=== PATIENT | male | born 2000 | race Caucasian/White ===

== ENCOUNTER 2020-06-21 13:55 | Inpatient (IN) | payer BC, OTHER ==
[~2020-06-21] VITALS: Ht 180.3 cm; Wt 76.0 kg
[2020-06-21] MEDS ORDERED: ONDANSETRON 2MG/ML, 2ML ONE (14:23)
[2020-06-21] MEDS ORDERED: MORPHINE SULFATE 4 MG/ML, 1ML ONE (14:23)
[2020-06-21] MEDS ORDERED: MORPHINE SULFATE 4 MG/ML, 1ML IVPush PRN (14:30)
[2020-06-21] MEDS ORDERED: SODIUM CHLORIDE FLUSH 10ML SYR IVF ONE (14:30)
[2020-06-21] MEDS ORDERED: ONDANSETRON 2MG/ML, 2ML IVPush ONE (14:30)
--- NOTE | 2020-06-21 15:28 | NUR ---
Break RN note: Dr. Owusu at bedside to evaluate pt.
[2020-06-21] MEDS ORDERED: ACETAMINOPHEN 325 MG TABLET PO PRN (16:00)
[2020-06-21] MEDS ORDERED: DIPHENHYDRAMINE 25 MG CAPSULE PO PRN (16:00)
[2020-06-21] MEDS ORDERED: ONDANSETRON 2MG/ML, 2ML IV PRN (16:00)
--- NOTE | 2020-06-21 16:09 | NUR ---
Break RN note: Reported events to Erasmo GLYNN who is reassuming care at this time.
[2020-06-21 16:41] VITALS: BP 155/88
[2020-06-21] MEDS: HYDROcodone/APAP 5/325 TABLET PO PRN ×2 (17:00→21:45)
[2020-06-21 19:30] VITALS: BP 119/64
[2020-06-21] MEDS: OXYcodone 5 MG/5 ML ORAL.SOL UDC PO PRN (20:14)
[2020-06-22 02:35] VITALS: BP 120/73
[2020-06-22] MEDS: morphine SULFATE 10 MG/ML, 1ML IV PRN ×2 (03:22→08:05)
[2020-06-22 07:00] VITALS: BP 125/75
[2020-06-22] MEDS ORDERED: ROCURONIUM 10MG/ML,5ML ONE (07:46)
[2020-06-22] MEDS ORDERED: PROPOFOL 10 MG/ML, 20ML ONE (07:46)
[2020-06-22] MEDS ORDERED: GLYCOPYRROLATE 0.2MG/1ML, 5ML ONE (07:46)
[2020-06-22] MEDS ORDERED: CEFAZOLIN 1,000 MG ONE (07:46)
[2020-06-22] MEDS ORDERED: ONDANSETRON 2MG/ML, 2ML ONE (07:46)
[2020-06-22] MEDS ORDERED: NEOSTIGMINE 1 MG/ML, 10ML ONE (07:46)
[2020-06-22] MEDS ORDERED: DEXAMETHASONE 4 MG/ML, 1ML ONE (07:46)
[2020-06-22] MEDS: OXYcodone 5 MG/5 ML ORAL.SOL UDC PO PRN (09:40)
[2020-06-22 13:27] VITALS: BP 146/78
[2020-06-22] MEDS ORDERED: CHLORHEXIDINE 15 ML UDC ONE (13:45)
[2020-06-22] MEDS ORDERED: CHLORHEXIDINE 15 ML UDC MM ONE (14:00)
[2020-06-22] MEDS ORDERED: BUPIVACAINE/PF 0.5% ONE (14:38)
[2020-06-22] MEDS ORDERED: FENTANYL PF 100 MCG/2ML ONE (15:07)
[2020-06-22] MEDS ORDERED: PROPOFOL 50 ML ONE (15:26)
[2020-06-22] MEDS ORDERED: MEPERIDINE/PF 50 MG/ML ONE (16:40)
[2020-06-22] MEDS ORDERED: DIPHENHYDRAMINE 50 MG/ML, 1ML IVPush PRN (17:00)
[2020-06-22] MEDS ORDERED: FENTANYL PF 100 MCG/2ML IV PRN (17:00)
[2020-06-22] MEDS ORDERED: LABETALOL 5MG/ML, 20ML IV PRN (17:00)
[2020-06-22] MEDS ORDERED: ACETAMINOPHEN 325 MG TABLET PO PRN (17:00)
[2020-06-22] MEDS ORDERED: HYDROmorphone 1 MG/ML, 1ML INJ IVPush PRN (17:00)
[2020-06-22] MEDS ORDERED: PROMETHAZINE 25 MG SUPP PR PRN (17:00)
[2020-06-22] MEDS ORDERED: KETOROLAC 30 MG/1 ML IVPush PRN (17:00)
[2020-06-22] MEDS ORDERED: ONDANSETRON 2MG/ML, 2ML IVPush PRN ×2 (17:00→19:30)
[2020-06-22] MEDS ORDERED: hydrALAzine 20 MG/ML, 1ML IV PRN (17:00)
[2020-06-22] MEDS ORDERED: EPHEDRINE 50 MG/ML, 1ML IVPush PRN (17:00)
[2020-06-22] MEDS ORDERED: OXYcodone 5 MG/5 ML ORAL.SOL UDC PO PRN ×2 (17:00→19:00)
[2020-06-22] MEDS ORDERED: MEPERIDINE/PF 25MG/0.5ML IVPush PRN (17:00)
[2020-06-22] MEDS ORDERED: METHOCARBAMOL 1,000 MG in DEXTROSE 5% 100 ML IV PRN (17:00)
[2020-06-22] MEDS ORDERED: DIAZEPAM 5 MG/ML, 2ML IVPush PRN (17:00)
[2020-06-22] MEDS ORDERED: OXYC5TAB2 PO (19:29)
[2020-06-22 20:15] VITALS: BP 115/81
== END 2020-06-22 20:30 | disposition home or self-care (01) | DRG 512 ==
LOC: ED 14:54 → EDIP 15:54 → 4NE 16:37
PROVIDERS: ADMIT Orthopaedic Surgery; ATTEND Orthopaedic Surgery
PROC: 2W3DX1Z Immobilization of Left Lower Arm using Splint (ICD-10-PCS; 2020-06-21)
PROC: 0PSJ04Z Reposition Left Radius with Internal Fixation Device, Open Approach (ICD-10-PCS; 2020-06-22)
PROC: 0PSL04Z Reposition Left Ulna with Internal Fixation Device, Open Approach (ICD-10-PCS; principal; 2020-06-22 14:30)
DX: S52.222A Displaced transverse fracture of shaft of left ulna, initial encounter for closed fracture (principal); S52.322A Displaced transverse fracture of shaft of left radius, initial encounter for closed fracture; Z20.828 Contact with and (suspected) exposure to other viral communicable diseases; W18.39XA Other fall on same level, initial encounter; Y93.89 Activity, other specified; Y92.89 Other specified places as the place of occurrence of the external cause; Y99.8 Other external cause status
CPT/HCPCS: 29105; 76000; 87635; 96374; C1713; G0378; J0690; J1100; J2175; J2405; J2704; J2710; J3010; J2270